=== PATIENT | male | born 1970 | race Two or more races ===

== ENCOUNTER 2020-04-06 05:17 | Emergency (ER) | payer MEDICAID ==
[~2020-04-06] VITALS: Ht 160 cm; Wt 90.7 kg
[2020-04-06] MEDS ORDERED: SODIUM CHLORIDE 0.9% 1,000 ML IV ONE (07:36)
[2020-04-06] MEDS ORDERED: SODIUM CHLORIDE 0.9% 1,000 ML IVB ONE (07:36)
[2020-04-06] MEDS ORDERED: TAMSULOSIN HYDROCHLORIDE 0.4 MG CAP PO ONE (07:45)
[2020-04-06] MEDS ORDERED: KETOROLAC TROMETH 30 MG/ML 1ML VIAL IV ONE (07:45)
[2020-04-06 07:53] LABS: Basophils # (auto) 0.1 10 ^3/uL (0-0.2); Basophils % (auto) 0.6 % (0.0-2.0); Eosinophils # (auto) 0.1 10 ^3/uL (0-0.8); Eosinophils % (auto) 1.4 % (0.0-7.0); Hematocrit 43.4 % (41.0-53.0); Hemoglobin 14.5 g/dL (13.5-17.5); Lymphocytes # (auto) 2.4 10 ^3/uL (0.4-5.4); Lymphocytes % (auto) 26.9 % (10.0-50.0); Mean Corpuscular Hemoglobin 29.2 pg (28.0-32.0); Mean Corpuscular Hgb Conc. 33.3 g/dL (32.0-36.0); Mean Corpuscular Volume 87.5 fL (80.0-100.0); Monocytes # (auto) 0.8 10 ^3/uL (0-1.3); Monocytes % (auto) 9.1 % (0.0-12.0); Neutrophils # (auto) 5.5 10 ^3/uL (1.6-8.6); Nucleated Red Blood Cells % 0.1 %; Platelet Count (auto) 257 10^3/uL (140-450); Red Blood Cells 4.96 10^6/uL (4.5-5.90); Red Cell Distribution Width 14.4 % (11.8-14.3); White Blood Cell 8.8 10^3/uL (4.4-10.8)
[2020-04-06 07:58] LABS: Urine Amorphous Crystal FEW /hpf (None Seen); Urine Bacteria NONE SEEN /hpf (None Seen); Urine Blood 2+ /uL (Negative); Urine Hyaline Cast MANY /lpf (0 - 2); Urine Mucus FEW (None Seen); Urine Specific Gravity 1.028 (1.001-1.035); Urine WBC 6 /hpf (0 - 3)
[2020-04-06 08:08] LABS: Potassium 3.9 mmol/L (3.5-5.1)
[2020-04-06 08:25] LABS: Albumin 4.2 g/dL (3.4-5.0); BUN/Creatinine Ratio 13.9; Bilirubin, Total 0.4 mg/dL (0.2-1.0); Calcium 9.3 mg/dL (8.5-10.1); Total Protein 8.1 g/dL (6.4-8.2)
[2020-04-06 08:30] VITALS: BP 171/96
== END 2020-04-06 12:03 | disposition home or self-care (01) ==
LOC: ER 05:17
DX: N20.0 Calculus of kidney (principal); N39.0 Urinary tract infection, site not specified; E86.0 Dehydration
CPT/HCPCS: 36415; 74176; 80053; 81001; 83690; 85025; 96361; 96374; 99284; J1885; J7030

== ENCOUNTER 2023-09-24 10:09 | Emergency (ER) | payer SELFPAY ==
[~2023-09-24] VITALS: Ht 160 cm; Wt 89.9 kg
[2023-09-24 11:39] VITALS: BP 123/77; PULSE 101; RESP 24; TEMP 99.8; O2SAT 95
[2023-09-24] MEDS ORDERED: cefTRIAXone SOD 1,000 MG VL IM ONE (12:00)
[2023-09-24] MEDS ORDERED: PROM1SOL4 PO (12:02)
[2023-09-24] MEDS ORDERED: AZIT500T66 PO (12:02)
[2023-09-24] MEDS ORDERED: LEVO500T91 PO (12:02)
== END 2023-09-24 12:21 | disposition home or self-care (01) ==
LOC: ER 10:09
DX: J18.9 Pneumonia, unspecified organism (principal); J20.9 Acute bronchitis, unspecified
CPT/HCPCS: 71046; 96372; 99283; J0696

== ENCOUNTER 2023-11-22 23:52 | Inpatient (IN) | payer MEDICAID ==
[~2023-11-22] VITALS: Ht 160 cm; Wt 193.7 kg
[~2023-11-22 23:52] MED LIST: AZIT500T66 PO; LEVO500T91 PO; PROM1SOL4 PO
[2023-11-23 00:41] LABS: Urine Bacteria NONE SEEN /hpf (None Seen); Urine Blood 2+ /uL (Negative); Urine Clarity HAZY (Clear); Urine Color Yellow (Yellow); Urine Protein, UAD TRACE (Negative); Urine Specific Gravity 1.025 (1.001-1.035); Urine Urobilinogen Normal (Negative); Urine WBC 17 /hpf (0 - 3); Urine pH 5.5 (5.0-8.0)
[2023-11-23 00:44] LABS: Basophils # (auto) 0.1 10 ^3/uL (0-0.2); Basophils % (auto) 0.3 % (0.0-2.0); Eosinophils # (auto) 0 10 ^3/uL (0-0.8); Eosinophils % (auto) 0.1 % (0.0-7.0); Hematocrit 44.5 % (41.0-53.0); Hemoglobin 14.6 g/dL (13.5-17.5); Lymphocytes # (auto) 2.2 10 ^3/uL (0.4-5.4); Lymphocytes % (auto) 11.3 % (10.0-50.0); Mean Corpuscular Hemoglobin 28.4 pg (28.0-32.0); Mean Corpuscular Hgb Conc. 32.9 g/dL (32.0-36.0); Mean Corpuscular Volume 86.2 fL (80.0-100.0); Monocytes # (auto) 1.5 10 ^3/uL (0-1.3); Neutrophils # (auto) 15.3 10 ^3/uL (1.6-8.6); Neutrophils % (auto) 80.3 % (37.0-80.0); Nucleated Red Blood Cells % 0.1 %; Red Blood Cells 5.16 10^6/uL (4.5-5.90); Red Cell Distribution Width 14.6 % (11.8-14.3)
[2023-11-23 00:50] LABS: Alanine Aminotransferase 35 U/L (7-40); Albumin 4.7 g/dL (3.2-4.8); Alkaline Phosphatase 113 U/L (46-116); Anion Gap 10 (5-15); Aspartate Aminotransferase 23 U/L (13-40); BUN/Creatinine Ratio 11.9 (10.0-20.0); Blood Urea Nitrogen 13 mg/dL (9-23); Calcium 9.3 mg/dL (8.7-10.4); Carbon Dioxide 21 mmol/L (20-30); Chloride 105 mmol/L (98-107); Glucose 149 mg/dL (74-106); INR 1.08 (0.9-1.15); Lipase 27 U/L (12-53); Partial Thromboplastin Time 28.8 SEC (24.5-34.5); Potassium 3.6 mmol/L (3.5-5.1); Prothrombin Time 11.3 sec (9.3-11.8); Sodium 136 mmol/L (136-145)
[2023-11-23 00:51] LABS: Bilirubin, Total 0.5 mg/dL (0.2-1.0); Total Protein 7.7 g/dL (5.7-8.2)
[2023-11-23] MEDS: ONDANSETRON HCL 4 MG/2 ML VIAL IV ONE (01:00)
[2023-11-23] MEDS: MORPHINE SULFATE 4 MG/ML SYR/VIAL IV ONE (01:00)
[2023-11-23] MEDS: SODIUM CHLORIDE 0.9% 1,000 ML IVB ONE (01:00)
[2023-11-23 01:03] LABS: Lactic Acid w/Reflex 2.2 mmol/L (0.4-2.0)
[2023-11-23 01:14] LABS: Amphetamine Screen, Urine Neg (NEGATIVE); Barbiturate Scree,Urine Neg (NEGATIVE); Benzodiazephine Screen, Urine Neg (NEGATIVE); Cannabinoid Screen, Urine Neg (NEGATIVE); Cocaine Screen, Urine Neg (NEGATIVE); Opiate Scree,Urine Neg (NEGATIVE); Phencyclidine Screen, Urine Neg (NEGATIVE)
[2023-11-23] MEDS: SODIUM CHLORIDE 0.9% 1,000 ML IV ONE ×2 (01:35→01:38)
[2023-11-23] MEDS: HYDROmorphone HCL 2 MG/ML VL/or syr IV ONE (02:25)
[2023-11-23] MEDS: PIPERACILLIN-TAZOB 3.375GM 100 ML IV ONE (03:54)
[2023-11-23] MEDS: cloNIDine HCL 0.1 MG TAB PO ONE (05:43)
[2023-11-23] MEDS ORDERED: DOCUSATE SOD 100 MG CAP PO PRN (06:45)
[2023-11-23] MEDS ORDERED: HYDROmorphone HCL 2 MG/ML VL/or syr IV PRN (06:45)
[2023-11-23] MEDS ORDERED: MORPHINE SULFATE INJ 2 MG/ml SYRG IV PRN (06:45)
[2023-11-23] MEDS ORDERED: ONDANSETRON HCL 4 MG/2 ML VIAL IV PRN (06:45)
[2023-11-23] MEDS ORDERED: hydrALAZINE HCL 20 MG/ML VL IV PRN (06:45)
[2023-11-23] MEDS ORDERED: HYDROcodone-ACET 5/325MG TAB PO PRN (06:45)
[2023-11-23] MEDS ORDERED: NITROGLYCERIN 0.4 MG SL TAB SL PRN (06:45)
[2023-11-23] MEDS: SODIUM CHLORIDE 0.9% 1,000 ML IV SCH ×2 (06:47→15:15)
[2023-11-23 07:11] LABS: Basophils # (auto) 0 10 ^3/uL (0-0.2); Basophils % (auto) 0.2 % (0.0-2.0); Eosinophils # (auto) 0 10 ^3/uL (0-0.8); Eosinophils % (auto) 0.1 % (0.0-7.0); Hematocrit 42.5 % (41.0-53.0); Hemoglobin 13.9 g/dL (13.5-17.5); Lymphocytes # (auto) 2.5 10 ^3/uL (0.4-5.4); Lymphocytes % (auto) 14.9 % (10.0-50.0); Mean Corpuscular Hemoglobin 28.5 pg (28.0-32.0); Mean Corpuscular Hgb Conc. 32.8 g/dL (32.0-36.0); Mean Corpuscular Volume 86.8 fL (80.0-100.0); Monocytes # (auto) 1.6 10 ^3/uL (0-1.3); Monocytes % (auto) 9.7 % (0.0-12.0); Neutrophils # (auto) 12.5 10 ^3/uL (1.6-8.6); Neutrophils % (auto) 75.1 % (37.0-80.0); Red Blood Cells 4.89 10^6/uL (4.5-5.90); Red Cell Distribution Width 14.7 % (11.8-14.3); White Blood Cell 16.6 10^3/uL (4.4-10.8)
[2023-11-23 07:33] LABS: Alanine Aminotransferase 29 U/L (7-40); Albumin 4.3 g/dL (3.2-4.8); Alkaline Phosphatase 102 U/L (46-116); Anion Gap 7 (5-15); Aspartate Aminotransferase 24 U/L (13-40); BUN/Creatinine Ratio 9.3 (10.0-20.0); Bilirubin, Total 0.7 mg/dL (0.2-1.0); Blood Urea Nitrogen 10 mg/dL (9-23); Calcium 9.1 mg/dL (8.5-10.1); Carbon Dioxide 24 mmol/L (20-30); Chloride 106 mmol/L (98-107); Glucose 108 mg/dL (74-106); Sodium 137 mmol/L (136-145); Total Protein 7.1 g/dL (5.7-8.2)
[2023-11-23 08:07] VITALS: PULSE 78; RESP 16; O2SAT 97
[2023-11-23 09:00] VITALS: PULSE 69; RESP 18; O2SAT 98
[2023-11-23 09:30] VITALS: BP 116/60; PULSE 69; RESP 18; TEMP 98.4; O2SAT 98
[2023-11-23 09:59] LABS: Hepatitis B Surface Antigen Negative (Negative)
[2023-11-23 10:21] LABS: Hepatitis C Antibody Negative (Negative)
[2023-11-23 13:00] VITALS: BP 121/67; PULSE 67; RESP 18; TEMP 98.2; O2SAT 95
[2023-11-23] MEDS: PIPERACILLIN-TAZOB 3.375GM 100 ML IV SCH (14:14)
[2023-11-23 16:47] VITALS: BP 138/81; PULSE 80; RESP 20; TEMP 98.8; O2SAT 99
[2023-11-23 22:00] VITALS: BP 151/95; PULSE 93; RESP 20; TEMP 98.1; O2SAT 97
[2023-11-24] VITALS (7 sets, daily range): BP systolic 123–155; BP diastolic 63–99; PULSE 63–94; RESP 16–20; TEMP 98–98.5; O2SAT 96–100
[2023-11-24] MEDS: ACETAMINOPHEN 325 MG TAB PO PRN
[2023-11-24 06:26] LABS: Basophils # (auto) 0 10 ^3/uL (0-0.2); Basophils % (auto) 0.3 % (0.0-2.0); Eosinophils # (auto) 0.1 10 ^3/uL (0-0.8); Eosinophils % (auto) 0.7 % (0.0-7.0); Hematocrit 42.6 % (41.0-53.0); Lymphocytes # (auto) 2.6 10 ^3/uL (0.4-5.4); Mean Corpuscular Hemoglobin 28.4 pg (28.0-32.0); Monocytes # (auto) 1.5 10 ^3/uL (0-1.3); Monocytes % (auto) 12.3 % (0.0-12.0); Neutrophils % (auto) 65.7 % (37.0-80.0); Nucleated Red Blood Cells % 0.1 %; Red Blood Cells 4.95 10^6/uL (4.5-5.90); Red Cell Distribution Width 14.4 % (11.8-14.3); White Blood Cell 12.2 10^3/uL (4.4-10.8)
[2023-11-24 06:47] LABS: Alanine Aminotransferase 27 U/L (7-40); Albumin 4.2 g/dL (3.2-4.8); Alkaline Phosphatase 104 U/L (46-116); Anion Gap 8 (5-15); Aspartate Aminotransferase 25 U/L (13-40); BUN/Creatinine Ratio 9.3 (10.0-20.0); Blood Urea Nitrogen 11 mg/dL (9-23); Calcium 9.4 mg/dL (8.5-10.1); Carbon Dioxide 25 mmol/L (20-30); Chloride 105 mmol/L (98-107); Glucose 98 mg/dL (74-106); Potassium 3.7 mmol/L (3.5-5.1); Sodium 138 mmol/L (136-145)
[2023-11-24 06:48] LABS: Bilirubin, Total 0.9 mg/dL (0.2-1.0); Total Protein 6.9 g/dL (5.7-8.2)
[2023-11-24] MEDS: cefTRIAXone 1GM/50ML D5W 50 ML IV SCH (08:42)
[2023-11-24] MEDS ORDERED: CIP500T PO (10:29)
[2023-11-24] MEDS: INFLUENZA QUAD 2023-2024 0.5 ML SYRG IM ONE (16:48)
[2023-11-24] MEDS: PNEUMOCOCCAL VACC POLYS 25 MCG/0.5 ML VIAL IM ONE (17:16)
== END 2023-11-24 18:23 | disposition home or self-care (01) | DRG 720 ==
LOC: ER 23:52 → OVERFLOW 11-23 06:45 → WEST WING 11-23 06:47
PROVIDERS: ADMIT Nurse Practitioner Family; ATTEND Nurse Practitioner Acute Care
DX: A41.9 Sepsis, unspecified organism (principal); K76.0 Fatty (change of) liver, not elsewhere classified; N20.1 Calculus of ureter; N13.9 Obstructive and reflux uropathy, unspecified; E66.9 Obesity, unspecified; N30.91 Cystitis, unspecified with hematuria; I16.9 Hypertensive crisis, unspecified; Z79.899 Other long term (current) drug therapy; Z68.34 Body mass index [BMI] 34.0-34.9, adult
CPT/HCPCS: 36415; 80053; 80307; 81001; 83605; 83690; 84484; 85025; 85610; 85730; 86803; 87040; 87340; 90686; 96361; 96365; 96375; G0378; J2405; J2543